=== PATIENT | female | born 1945 | race Caucasian/White ===

== ENCOUNTER 2018-05-13 08:18 | Day surgery (SDC) | payer MEDICARE, BC ==
[~2018-05-13] VITALS: Ht 160 cm; Wt 83.2 kg
[2018-05-13] VITALS (11 sets, daily range): BP systolic 112–170; BP diastolic 34–77; PULSE 58–66; TEMP 97.3–98.2
[~2018-05-13 08:18] MED LIST: CELEXA 20MG20 MG/TAB PO; CIPRO 500MG TA500 MG PO; COZAAR 50MG50 MG/TAB PO; HCTZ 25MG25 MG PO; METFORMIN HCL500 MG PO; NORCO 325 MG-51 TAB PO; ONDANSETRON4 MG PO; SYNTHROID 0.0.025 MG PO; ULTRAM 50MG TAB50 MG PO; UROCIT-K 1010 MEQ PO; VESICARE10 MG PO; ZOFRAN 4MG T4 MG/TAB PO; ZYLOPRIM 300MG300 MG PO
--- NOTE | 2018-05-13 09:30 | NUR ---
BP initally high upon arrival, rechecked 140/65. Will continue to monitor.
--- NOTE | 2018-05-13 13:00 | NUR ---
Patient arrived to the floor from PACU at this time, she is alert/oriented, vital signs stable, pain is controlled at this time, she is a little nauseated but tolerating some water/ ice chips at this time, will continue to monitor
--- NOTE | 2018-05-13 16:28 | NUR ---
continues to do well post-op, vitals stable, pain and discomfort is improved and tolerating PO intake well, dneies other needs
--- NOTE | 2018-05-13 20:00 | NUR ---
Patient in bed resting; Alert and oriented x 3. Shift assessment complete. Patient independent in room. Denies pain or needs at this time.
[2018-05-14] VITALS (7 sets, daily range): BP systolic 112–147; BP diastolic 39–62; PULSE 58–73; TEMP 97.3–98.2
--- NOTE | 2018-05-14 05:32 | NUR ---
Patient has rested well through the night. Minimal needs. Independent in room. Continues to deny pain or further needs at this time. Will report off to day shift.
--- NOTE | 2018-05-14 09:30 | NUR ---
Patient alert and oriented, answers questions appropriately. See assessment. No c/o urinary frequency or hesitancy. Urinary output adequate. No c/o at this time.
--- NOTE | 2018-05-14 11:16 | NUR ---
Discharge instructions reviewed with patient, verbalized understanding. Discharged ambulatory to auto/home at 1110.
--- NOTE | 2018-05-14 11:58 | NUR ---
Plans to return home to [place]. Patient reports that she is independent and uses a cane sporadically prn for hip pain. Patient indicated that she is transporting herself home and she provided DPOA PPW on arrival. Patient reports PCP and Dr. Levi does not have f-up marko. Patient denies having any other concerns at this time. Action: No additional needs identified.
== END 2018-05-14 11:10 | disposition home or self-care (01) ==
LOC: SDCO 08:18 → SURG 13:45 → SDCO 05-14 11:10
DX: N20.0 Calculus of kidney (principal); E11.9 Type 2 diabetes mellitus without complications; I10 Essential (primary) hypertension; E03.9 Hypothyroidism, unspecified; F41.9 Anxiety disorder, unspecified; G47.33 Obstructive sleep apnea (adult) (pediatric); M10.9 Gout, unspecified; Z90.710 Acquired absence of both cervix and uterus; Z79.84 Long term (current) use of oral hypoglycemic drugs; Z88.8 Allergy status to other drugs, medicaments and biological substances; Z85.41 Personal history of malignant neoplasm of cervix uteri; Z83.3 Family history of diabetes mellitus
CPT/HCPCS: OP; C1769; C1894; J0690; J1100; J1170; J1885; J2405; J2550; J2704; J3010; J7030